=== PATIENT | male | born 2005 | race Hispanic/Latino ===

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

== ENCOUNTER 2024-06-02 20:27 | Emergency (ER) | payer OTHER, SELFPAY ==
[2024-06-02] MEDS ORDERED: Lidocaine 1% w/Epinephrine 1:100K 20 ML VIAL ONE (21:01)
[2024-06-02] MEDS ORDERED: Boostrix 0.5 ML (Tdap) VIAL (>/=7 yrs of age) ONE (21:01)
== END 2024-06-02 23:55 | disposition home or self-care (01) ==
LOC: ERS 20:27
DX: S66.126A Laceration of flexor muscle, fascia and tendon of right little finger at wrist and hand level, initial encounter (principal); W26.0XXA Contact with knife, initial encounter; Y93.G3 Activity, cooking and baking; Y92.009 Unspecified place in unspecified non-institutional (private) residence as the place of occurrence of the external cause
CPT/HCPCS: 12002; 90471; 90715

== ENCOUNTER 2024-06-11 08:42 | Day surgery (SDC) | payer SELFPAY ==
[2024-06-10 12:30] VITALS: BMI 30.2
[2024-06-11] MEDS ORDERED: Dexamethasone 4 mg/ml Vial ONE (13:07)
[2024-06-11] MEDS ORDERED: Lidocaine 1% PF 5 ML VIAL ONE (13:07)
[2024-06-11] MEDS ORDERED: Ondansetron PF 4 MG/2 ML Vial ONE (13:07)
[2024-06-11] MEDS ORDERED: fentaNYL PF 100 MCG/2 ML SYRINGE ONE (13:07)
[2024-06-11] MEDS ORDERED: PROPOFOL 40 ML ONE (13:08)
[2024-06-11] MEDS ORDERED: Bacitracin Zinc Ointment 30 gm TUBE ONE (13:31)
[2024-06-11] MEDS ORDERED: Bupivacaine PF 0.5% 30 ML VIAL ONE (13:31)
[2024-06-11] MEDS ORDERED: Midazolam HCl 2 mg/2 ml Vial ONE (13:35)
[2024-06-11] MEDS ORDERED: CEFAZOLIN 2 GM VIAL ONE (13:42)
[2024-06-11] MEDS ORDERED: PHENYLEPHRINE-NS 100 MCG/ML 10 ML SYRINGE ONE (14:00)
[2024-06-11] MEDS ORDERED: ePHEDrine Sulfate 50 MG/10 ML VIAL ONE (14:00)
[2024-06-11] MEDS ORDERED: Glycopyrrolate 0.2 MG/ML 5 ML SYRINGE ONE (14:00)
[2024-06-11] MEDS ORDERED: Ketorolac Tromethamine 30 MG (1 mL) VIAL ONE (17:09)
[2024-06-11] MEDS ORDERED: fentaNYL 50 mcg/mL 1 mL Vial ONE (17:14)
== END 2024-06-11 18:45 | disposition home or self-care (01) ==
LOC: SDC 08:42
PROVIDERS: ATTEND Orthopaedic Surgery Hand Surgery
PROC: 01Q60ZZ Repair Radial Nerve, Open Approach (ICD-10-PCS; principal; 2024-06-11)
PROC: 0KQC0ZZ Repair Right Hand Muscle, Open Approach (ICD-10-PCS; principal; 2024-06-11)
DX: S66.126A Laceration of flexor muscle, fascia and tendon of right little finger at wrist and hand level, initial encounter (principal); S61.214A Laceration without foreign body of right ring finger without damage to nail, initial encounter; J45.909 Unspecified asthma, uncomplicated; F17.290 Nicotine dependence, other tobacco product, uncomplicated; Z90.49 Acquired absence of other specified parts of digestive tract; Z79.51 Long term (current) use of inhaled steroids; W26.0XXA Contact with knife, initial encounter
CPT/HCPCS: J0665; J1100; J1885; J2250; J2405; J2704; J3010